=== PATIENT | male | born 1970 | race African-American/Black ===

== ENCOUNTER 2018-04-01 14:41 | Emergency (ER) | payer MEDICAID ==
[~2018-04-01] VITALS: Ht 172.7 cm; Wt 70.0 kg
[~2018-04-01 14:41] MED LIST: [UNRECOGNIZED DRUG - REMARK]
[2018-04-01 16:16] VITALS: BP 108/68
== END 2018-04-01 18:00 | disposition left against medical advice (07) ==
LOC: ER 16:34
DX: R41.82 Altered mental status, unspecified (principal); Z53.21 Procedure and treatment not carried out due to patient leaving prior to being seen by health care provider

== ENCOUNTER 2018-06-29 00:59 | Emergency (ER) | payer MEDICAID ==
[~2018-06-29] VITALS: Ht 172.7 cm; Wt 73.0 kg
[2018-06-29 01:19] VITALS: BP 134/84
== END 2018-06-29 04:15 | disposition left against medical advice (07) ==
LOC: ER 00:59
DX: R41.82 Altered mental status, unspecified (principal); Z53.21 Procedure and treatment not carried out due to patient leaving prior to being seen by health care provider

== ENCOUNTER 2019-07-11 02:33 | Emergency (ER) | payer MEDICAID ==
[~2019-07-11] VITALS: Ht 170.2 cm; Wt 79.0 kg
[2019-07-11 02:44] VITALS: BP 137/83
== END 2019-07-11 04:54 | disposition left against medical advice (07) ==
LOC: ER 02:33
DX: Z53.21 Procedure and treatment not carried out due to patient leaving prior to being seen by health care provider (principal); Z98.890 Other specified postprocedural states

== ENCOUNTER 2019-07-14 18:18 | Emergency (ER) | payer MEDICAID ==
[~2019-07-14] VITALS: Ht 160 cm; Wt 79.0 kg
[2019-07-14 18:44] VITALS: BP 138/84
== END 2019-07-15 01:34 | disposition left against medical advice (07) ==
LOC: ER 18:18
DX: Z53.21 Procedure and treatment not carried out due to patient leaving prior to being seen by health care provider (principal)

== ENCOUNTER 2019-08-17 23:25 | Emergency (ER) | payer MEDICAID ==
[~2019-08-17] VITALS: Ht 167.6 cm; Wt 75.0 kg
[2019-08-18] MEDS ORDERED: IBUPROFEN 600MG TABLET PO ONE (03:00)
[2019-08-18 03:16] VITALS: BP 140/82
== END 2019-08-18 04:23 | disposition home or self-care (01) ==
LOC: ER 23:25
DX: M79.671 Pain in right foot (principal); M79.672 Pain in left foot; Z98.890 Other specified postprocedural states
CPT/HCPCS: 99282

== ENCOUNTER 2019-08-25 03:06 | Emergency (ER) | payer MEDICAID ==
[~2019-08-25] VITALS: Ht 175.3 cm; Wt 82.0 kg
[2019-08-25] MEDS ORDERED: MAGNESIUM/ALUMINUM HYDROXIDE/SIMETHICONE 30ML UDC PO ONE (06:30)
[2019-08-25] MEDS ORDERED: VISCOUS LIDOCAINE 2% 15 ML UDC PO ONE (06:30)
[2019-08-25 07:18] LABS: BASOPHILS % 1.1 % (0.0-2.0); EOSINOPHILS % 1.9 % (0.0-5.0); HEMATOCRIT. 42.4 % (42.0-52.0); LYMPHOCYTES % 27.9 % (20.0-50.0); MEAN CORPUSCULAR HEMOGLOBIN 29.4 pg (28.0-32.0); MEAN CORPUSCULAR VOLUME 89.1 fL (80.0-94.0); MEAN PLATELET VOLUME 8.4 fl (7.4-10.4); MONOCYTES % 10.1 % (2.0-8.0); PLATELET 317 x1000/uL (130-400); RED BLOOD CELL COUNT 4.76 mill/uL (4.7-6.1); RED CELL DISTRIBUTION WIDTH 14.9 % (11.6-14.6)
[2019-08-25 07:27] LABS: CHLORIDE 105 mEq/L (98-107)
[2019-08-25 07:32] LABS: ETHANOL BLOOD < 10 mg/dL
[2019-08-25 08:51] LABS: *AMPHETAMINES SCREEN URINE PRESUMTIVE POSITIVE (NEGATIVE); *BARBITURATES SCREEN URINE NEGATIVE (NEGATIVE)
[2019-08-25 08:52] LABS: *BENZODIAZEPINES SCREEN URINE NEGATIVE (NEGATIVE); *COCAINE SCREEN URINE NEGATIVE (NEGATIVE); CANNABINOID URINE SCREEN NEGATIVE (NEGATIVE); METHADONE URINE SCREEN NEGATIVE (NEGATIVE); OPIATES URINE SCREEN NEGATIVE (NEGATIVE); PHENCYCLIDINE URINE SCREEN NEGATIVE (NEGATIVE)
[2019-08-25] MEDS ORDERED: ASPIRIN 325MG EC TABLET PO ONE (10:15)
[2019-08-25 11:34] VITALS: BP 141/86
== END 2019-08-25 12:27 | disposition left against medical advice (07) ==
LOC: ER 03:06 → CANBEDREQ 16:45
DX: I24.9 Acute ischemic heart disease, unspecified (principal); F15.10 Other stimulant abuse, uncomplicated; R42 Dizziness and giddiness; R10.9 Unspecified abdominal pain; R07.9 Chest pain, unspecified; F17.290 Nicotine dependence, other tobacco product, uncomplicated; Z98.890 Other specified postprocedural states
CPT/HCPCS: 36415; 71045; 80053; 80305; 80320; 83880; 84484; 85025; 93005; 99285; 99406; G0480

== ENCOUNTER 2019-08-30 03:39 | Emergency (ER) | payer MEDICAID ==
[~2019-08-30] VITALS: Ht 167.6 cm; Wt 72.0 kg
[2019-08-30 04:22] VITALS: BP 155/77
[2019-08-30] MEDS ORDERED: LEVETIRACETAM 500MG TABLET PO ONE (07:15)
[2019-08-30 09:40] LABS: BASOPHILS % 0.8 % (0.0-2.0); EOSINOPHILS % 1.3 % (0.0-5.0); HEMATOCRIT. 40.6 % (42.0-52.0); HEMOGLOBIN. 13.5 g/dL (14.0-18.0); LYMPHOCYTES % 24.7 % (20.0-50.0); MEAN CORPUSCULAR HEMOGLOBIN 29.6 pg (28.0-32.0); MEAN PLATELET VOLUME 8.2 fl (7.4-10.4); MONOCYTES % 13.8 % (2.0-8.0); NEUTROPHILS % 59.4 % (40.0-76.0); PLATELET 314 x1000/uL (130-400); RED BLOOD CELL COUNT 4.57 mill/uL (4.7-6.1)
[2019-08-30 09:46] LABS: CHLORIDE 107 mEq/L (98-107); PROTHROMBIN TIME 10.4 sec (9.6-11.0)
[2019-08-30 09:53] LABS: ETHANOL BLOOD < 10 mg/dL
== END 2019-08-30 11:46 | disposition home or self-care (01) ==
LOC: ER 03:39
DX: R51 Headache (principal); R42 Dizziness and giddiness; R47.81 Slurred speech; F15.10 Other stimulant abuse, uncomplicated; Z79.899 Other long term (current) drug therapy; Z98.890 Other specified postprocedural states
CPT/HCPCS: 36415; 80053; 80320; 85025; 99284; G0480

== ENCOUNTER 2019-09-13 01:33 | Emergency (ER) | payer MEDICAID ==
[~2019-09-13] VITALS: Ht 167.6 cm; Wt 65.4 kg
[2019-09-13 01:52] VITALS: BP 144/94
[2019-09-13] MEDS ORDERED: LEVETIRACETAM 500MG TABLET PO ONE (02:15)
[2019-09-13] MEDS ORDERED: ACETAMINOPHEN 500MG TABLET PO ONE (02:15)
[2019-09-13] MEDS ORDERED: ONDANSETRON 4MG ODT PO ONE (02:30)
== END 2019-09-13 02:44 | disposition home or self-care (01) ==
LOC: ER 01:33
DX: R51 Headache (principal); F15.10 Other stimulant abuse, uncomplicated; G40.909 Epilepsy, unspecified, not intractable, without status epilepticus; F10.10 Alcohol abuse, uncomplicated; Z91.19 Patient's noncompliance with other medical treatment and regimen; Z98.890 Other specified postprocedural states; Y90.9 Presence of alcohol in blood, level not specified
CPT/HCPCS: 99283; Q0162

== ENCOUNTER 2019-10-09 00:49 | Emergency (ER) | payer MEDICAID ==
[~2019-10-09] VITALS: Ht 175.3 cm; Wt 63.0 kg
[2019-10-09] MEDS ORDERED: ACETAMINOPHEN 500MG TABLET PO ONE (01:45)
[2019-10-09 02:02] VITALS: BP 133/83
== END 2019-10-09 02:03 | disposition home or self-care (01) ==
LOC: ER 00:49
DX: F19.10 Other psychoactive substance abuse, uncomplicated (principal); F10.10 Alcohol abuse, uncomplicated; Y90.0 Blood alcohol level of less than 20 mg/100 ml; F17.290 Nicotine dependence, other tobacco product, uncomplicated; F14.10 Cocaine abuse, uncomplicated; F15.10 Other stimulant abuse, uncomplicated
CPT/HCPCS: 93005; 99283

== ENCOUNTER 2019-12-05 16:56 | Inpatient (IN) | payer MEDICAID ==
[~2019-12-05] VITALS: Ht 160 cm; Wt 60.3 kg
[2019-12-05] MEDS ORDERED: SODIUM CHLORIDE 0.9% 1,000 ML IV ONE (17:21)
[2019-12-05 18:31] LABS: BASOPHILS % 0.7 % (0.0-2.0); EOSINOPHILS % 2.1 % (0.0-5.0); HEMATOCRIT. 41.7 % (42.0-52.0); HEMOGLOBIN. 14.2 g/dL (14.0-18.0); LYMPHOCYTES % 25.6 % (20.0-50.0); MEAN CORPUSCULAR HEMOGLOBIN 29.4 pg (28.0-32.0); MEAN CORPUSCULAR VOLUME 86.1 fL (80.0-94.0); MEAN PLATELET VOLUME 7.9 fl (7.4-10.4); MONOCYTES % 10.6 % (2.0-8.0); PLATELET 337 x1000/uL (130-400); RED BLOOD CELL COUNT 4.85 mill/uL (4.7-6.1)
[2019-12-05 18:35] LABS: CHLORIDE 105 mEq/L (98-107)
[2019-12-05 18:36] LABS: *AMPHETAMINES SCREEN URINE PRESUMTIVE POSITIVE (NEGATIVE); *BARBITURATES SCREEN URINE NEGATIVE (NEGATIVE); *BENZODIAZEPINES SCREEN URINE NEGATIVE (NEGATIVE); *COCAINE SCREEN URINE NEGATIVE (NEGATIVE); METHADONE URINE SCREEN NEGATIVE (NEGATIVE); OPIATES URINE SCREEN NEGATIVE (NEGATIVE)
[2019-12-05 18:37] LABS: CANNABINOID URINE SCREEN NEGATIVE (NEGATIVE); PHENCYCLIDINE URINE SCREEN NEGATIVE (NEGATIVE)
[2019-12-05 18:39] LABS: ETHANOL BLOOD 93 mg/dL
[2019-12-05] MEDS ORDERED: LORAZEPAM 2MG/ML CPJ IV ONE (19:15)
[2019-12-05] MEDS ORDERED: LORAZEPAM 2MG/ML CPJ IM ONE ×2 (20:45→22:30)
[2019-12-05] MEDS ORDERED: HALOPERIDOL LACTATE 5MG/ML VIAL IM ONE ×2 (21:15→21:18)
[2019-12-05] MEDS ORDERED: LORAZEPAM 2MG/ML CPJ ONE (22:25)
[2019-12-06] MEDS ORDERED: GUAIFENESIN 200MG/10ML SUGAR FREE UDC PO PRN (19:30)
[2019-12-06] MEDS ORDERED: NALOXONE HCL 0.4 MG/ML 1ML VIAL IV NR (19:30)
[2019-12-06] MEDS ORDERED: LORAZEPAM 2MG/ML CPJ IV PRN ×2 (19:30)
[2019-12-06] MEDS ORDERED: DOCUSATE SODIUM 100MG CAPSULE PO PRN (19:30)
[2019-12-06] MEDS ORDERED: POTASSIUM CHLORIDE 20MEQ TABLET SR PO NR (19:30)
[2019-12-06] MEDS ORDERED: IPRATROPIUM/ALBUTEROL 0.5-3(2.5)MG/3ML NEB HHN PRN (19:30)
[2019-12-06] MEDS ORDERED: ONDANSETRON HCL 4MG/2ML INJ IV PRN (19:30)
[2019-12-06] MEDS ORDERED: ACETAMINOPHEN 325MG TABLET PO PRN (19:30)
[2019-12-06] MEDS ORDERED: HYDROCODONE/ACETAMINOPHEN 5/325MG TABLET PO PRN (19:30)
[2019-12-06] MEDS ORDERED: CLONIDINE 0.1MG TABLET PO PRN (19:30)
[2019-12-06] MEDS: FOLIC ACID 1MG TABLET PO SCH (20:00)
[2019-12-06] MEDS: MULTIVITAMINS,THER W-MINERALS TABLET PO SCH (20:00)
[2019-12-06] MEDS: THIAMINE HCL 100MG TABLET PO SCH (20:00)
[2019-12-06 21:13] VITALS: BP 143/84
[2019-12-06 21:15] VITALS: BP 143/84
[2019-12-06] MEDS: CHLORDIAZEPOXIDE 25MG CAPSULE PO SCH (22:00)
[2019-12-06] MEDS: SODIUM CHLORIDE 0.9% 1,000 ML IV SCH (23:18)
[2019-12-07] VITALS (7 sets, daily range): BP systolic 118–143; BP diastolic 77–108
[2019-12-07] MEDS: CHLORDIAZEPOXIDE 25MG CAPSULE PO SCH ×2 (06:00→13:32)
[2019-12-07] MEDS: FOLIC ACID 1MG TABLET PO SCH (08:30)
[2019-12-07] MEDS: MULTIVITAMINS,THER W-MINERALS TABLET PO SCH (08:30)
[2019-12-07] MEDS: THIAMINE HCL 100MG TABLET PO SCH (08:30)
[2019-12-07 09:59] LABS: BASOPHILS % 0.4 % (0.0-2.0); EOSINOPHILS % 1.1 % (0.0-5.0); HEMATOCRIT. 41.5 % (42.0-52.0); HEMOGLOBIN. 14.2 g/dL (14.0-18.0); LYMPHOCYTES % 16.1 % (20.0-50.0); MEAN CORPUSCULAR HEMOGLOBIN 29.1 pg (28.0-32.0); MEAN CORPUSCULAR VOLUME 85.3 fL (80.0-94.0); MEAN PLATELET VOLUME 8.1 fl (7.4-10.4); MONOCYTES % 9.4 % (2.0-8.0); PLATELET 324 x1000/uL (130-400); RED BLOOD CELL COUNT 4.86 mill/uL (4.7-6.1); RED CELL DISTRIBUTION WIDTH 14.2 % (11.6-14.6)
[2019-12-07 10:02] LABS: CHLORIDE 105 mEq/L (98-107)
[2019-12-07] MEDS ORDERED: FOLI-43 PO (11:23)
[2019-12-07] MEDS ORDERED: L25 MT (11:23)
[2019-12-07] MEDS ORDERED: THIA100T72 PO (11:23)
[2019-12-07] MEDS: SODIUM CHLORIDE 0.9% 1,000 ML IV SCH (13:33)
[2019-12-07 14:15] LABS: FOLIC ACID (FOLATE) SERUM 18.9 ng/mL (>5.38)
== END 2019-12-07 19:10 | disposition home or self-care (01) | DRG 775 ==
LOC: ER 16:56 → MICUSO 12-06 15:57 → 5WST 12-06 21:56
PROVIDERS: ADMIT Internal Medicine; ATTEND Internal Medicine
DX: F10.129 Alcohol abuse with intoxication, unspecified (principal); G92 Toxic encephalopathy; E72.20 Disorder of urea cycle metabolism, unspecified; G93.89 Other specified disorders of brain; D72.810 Lymphocytopenia; D72.821 Monocytosis (symptomatic); E87.6 Hypokalemia; Z72.89 Other problems related to lifestyle; F15.129 Other stimulant abuse with intoxication, unspecified
CPT/HCPCS: 36415; 80048; 80053; 80305; 80320; 82140; 82607; 82746; 82962; 83735; 84100; 85025; 99285; J1630; J2060; J7030; G0480

== ENCOUNTER 2020-02-05 14:39 | Emergency (ER) | payer MEDICAID ==
[~2020-02-05] VITALS: Ht 167.6 cm; Wt 75.0 kg
[~2020-02-05 14:39] MED LIST changes: +FOLI-43 PO; +L25 MT; +THIA100T72 PO; -[UNRECOGNIZED DRUG - REMARK]
[2020-02-05 14:43] VITALS: BP 131/83
[2020-02-05] MEDS ORDERED: MAGNESIUM/ALUMINUM HYDROXIDE/SIMETHICONE 30ML UDC PO STA (15:13)
[2020-02-05] MEDS ORDERED: DICYCLOMINE 10 MG/5 ML ORAL SYR PO STA (15:13)
[2020-02-05] MEDS ORDERED: VISCOUS LIDOCAINE 2% 15 ML UDC PO STA (15:13)
[2020-02-05] MEDS ORDERED: ONDANSETRON 4MG ODT PO STA (15:13)
== END 2020-02-05 16:39 | disposition home or self-care (01) ==
LOC: ER 14:39
DX: R10.13 Epigastric pain (principal); F14.10 Cocaine abuse, uncomplicated; F15.10 Other stimulant abuse, uncomplicated; Z79.899 Other long term (current) drug therapy
CPT/HCPCS: 99284; Q0162

== ENCOUNTER 2020-03-18 23:46 | Emergency (ER) | payer MEDICAID ==
[~2020-03-18] VITALS: Ht 175.3 cm; Wt 75.0 kg
[2020-03-19] MEDS ORDERED: SODIUM CHLORIDE 0.9% 1,000 ML IV ONE (00:07)
[2020-03-19] MEDS ORDERED: ONDANSETRON HCL 4MG/2ML INJ IV STA (00:07)
[2020-03-19 00:31] LABS: BASOPHILS % 0.5 % (0.0-2.0); HEMATOCRIT. 37.4 % (42.0-52.0); HEMOGLOBIN. 12.7 g/dL (14.0-18.0); MEAN CORPUSCULAR HEMOGLOBIN 30.4 pg (28.0-32.0); MEAN CORPUSCULAR VOLUME 89.6 fL (80.0-94.0); MEAN PLATELET VOLUME 7.7 fl (7.4-10.4); MONOCYTES % 13.6 % (2.0-8.0); NEUTROPHILS % 48.9 % (40.0-76.0); PLATELET 255 x1000/uL (130-400); RED BLOOD CELL COUNT 4.17 mill/uL (4.7-6.1); RED CELL DISTRIBUTION WIDTH 13.6 % (11.6-14.6)
[2020-03-19 00:35] LABS: CHLORIDE 106 mEq/L (98-107)
[2020-03-19 00:42] LABS: ETHANOL BLOOD 169 mg/dL
[2020-03-19] MEDS ORDERED: POTASSIUM CHLORIDE 20MEQ TABLET SR PO NR (04:00)
[2020-03-19 06:25] VITALS: BP 115/78
== END 2020-03-19 06:45 | disposition home or self-care (01) ==
LOC: ER 23:46
DX: G93.40 Encephalopathy, unspecified (principal); F10.129 Alcohol abuse with intoxication, unspecified; Y90.6 Blood alcohol level of 120-199 mg/100 ml; T51.91XA Toxic effect of unspecified alcohol, accidental (unintentional), initial encounter; Y92.9 Unspecified place or not applicable
CPT/HCPCS: 36415; 80053; 80320; 85025; 93005; 99285; J7030; G0480

== ENCOUNTER 2020-07-05 03:48 | Emergency (ER) | payer MEDICAID ==
[~2020-07-05] VITALS: Ht 167.6 cm; Wt 69.0 kg
[2020-07-05 04:00] VITALS: BP 132/89
[2020-07-05] MEDS ORDERED: IBUPROFEN 600MG TABLET PO ONE (05:30)
== END 2020-07-05 05:53 | disposition home or self-care (01) ==
LOC: ER 03:48
DX: M54.5 Low back pain (principal); Z98.890 Other specified postprocedural states
CPT/HCPCS: 72100; 99283

== ENCOUNTER 2020-09-09 11:27 | Emergency (ER) | payer MEDICAID ==
[~2020-09-09] VITALS: Ht 170.2 cm; Wt 77.0 kg
[2020-09-09] MEDS ORDERED: FOLIC ACID 1 MG, THIAMINE HCL 100 MG, MVI, ADULT NO.1 10 ML in DEXTROSE 5% WATER 1,000 ML IV ONE (12:00)
[2020-09-09] MEDS ORDERED: SODIUM CHLORIDE 0.9% 1,000 ML IV ONE ×3 (12:00→18:00)
[2020-09-09 12:34] LABS: BASOPHILS % 0.7 % (0.0-2.0); EOSINOPHILS % 0.8 % (0.0-5.0); HEMATOCRIT. 38.9 % (42.0-52.0); HEMOGLOBIN. 12.8 g/dL (14.0-18.0); MEAN CORPUSCULAR HEMOGLOBIN 28.6 pg (28.0-32.0); MEAN PLATELET VOLUME 7.7 fl (7.4-10.4); MONOCYTES % 13.8 % (2.0-8.0); NEUTROPHILS % 53.7 % (40.0-76.0); PLATELET 253 x1000/uL (130-400); RED BLOOD CELL COUNT 4.47 mill/uL (4.7-6.1)
[2020-09-09 12:47] LABS: CHLORIDE 106 mEq/L (98-107)
[2020-09-09 12:49] LABS: CLARITY URINE CLEAR (CLEAR); COLOR URINE YELLOW (YELLOW); KETONES URINE NEGATIVE (NEGATIVE); LEUKOCYTE ESTERASE URINE NEGATIVE (NEGATIVE); NITRITE URINE NEGATIVE (NEGATIVE); OCCULT BLOOD URINE TRACE (NEGATIVE); PH URINE 6.5 (4.5-8.0); PROTEIN URINE TRACE (NEGATIVE); SPECIFIC GRAVITY URINE 1.014 (1.005-1.030)
[2020-09-09 12:58] LABS: ETHANOL BLOOD 69 mg/dL
[2020-09-09] MEDS ORDERED: MULTIVITAMINS,THER W-MINERALS TABLET PO SCH (13:00)
[2020-09-09] MEDS ORDERED: FOLIC ACID 1 MG, THIAMINE HCL 100 MG in DEXTROSE 5% WATER 1,000 ML IV ONE (13:00)
[2020-09-09 13:17] LABS: *AMPHETAMINES SCREEN URINE PRESUMTIVE POSITIVE (NEGATIVE); *BARBITURATES SCREEN URINE NEGATIVE (NEGATIVE); METHADONE URINE SCREEN NEGATIVE (NEGATIVE); OPIATES URINE SCREEN NEGATIVE (NEGATIVE); PHENCYCLIDINE URINE SCREEN NEGATIVE (NEGATIVE)
[2020-09-09 13:19] LABS: *BENZODIAZEPINES SCREEN URINE NEGATIVE (NEGATIVE); *COCAINE SCREEN URINE NEGATIVE (NEGATIVE)
[2020-09-09 13:29] LABS: CANNABINOID URINE SCREEN NEGATIVE (NEGATIVE)
[2020-09-09] MEDS ORDERED: POTASSIUM CHLORIDE 20MEQ TABLET SR PO ONE (14:15)
[2020-09-09] MEDS ORDERED: IBUP-2028 MT (23:25)
[2020-09-09] MEDS ORDERED: IBUPROFEN 600MG TABLET PO ONE (23:30)
[2020-09-10 04:27] VITALS: BP 159/89
== END 2020-09-10 05:16 | disposition home or self-care (01) ==
LOC: ER 11:27
DX: G92 Toxic encephalopathy (principal); F10.129 Alcohol abuse with intoxication, unspecified; Y90.3 Blood alcohol level of 60-79 mg/100 ml; F19.10 Other psychoactive substance abuse, uncomplicated; F15.129 Other stimulant abuse with intoxication, unspecified; E87.2 Acidosis; M54.9 Dorsalgia, unspecified; E87.6 Hypokalemia; F17.200 Nicotine dependence, unspecified, uncomplicated
CPT/HCPCS: 36415; 70450; 80053; 80305; 80307; 80320; 80329; 81003; 83605; 84484; 85025; 93005; 96361; 96365; 96366; 99285; J3411; J3490; J7030; J7070; Z7610; G0480

== ENCOUNTER 2021-08-11 04:05 | Emergency (ER) | payer MEDICAID ==
[~2021-08-11] VITALS: Ht 167.6 cm; Wt 75.0 kg
[~2021-08-11 04:05] MED LIST changes: +IBUP-2028 MT
[2021-08-11] MEDS ORDERED: IBUPROFEN 600MG TABLET PO STA (05:25)
[2021-08-11 06:05] LABS: HEMOGLOBIN. 12.9 g/dL (14.0-18.0); MEAN CORPUSCULAR HEMOGLOBIN 29.5 pg (28.0-32.0); MEAN CORPUSCULAR VOLUME 86.7 fL (80.0-94.0); MEAN PLATELET VOLUME 7.6 fl (7.4-10.4); PLATELET 299 x1000/uL (130-400); RED BLOOD CELL COUNT 4.38 mill/uL (4.7-6.1); RED CELL DISTRIBUTION WIDTH 13.4 % (11.6-14.6)
[2021-08-11 06:13] LABS: CHLORIDE 107 mEq/L (98-107)
[2021-08-11 06:17] LABS: ETHANOL BLOOD < 10 mg/dL
[2021-08-11 06:24] VITALS: BP 128/84
[2021-08-11 06:48] LABS: PLATELET ESTIMATE NORMAL
[2021-08-11 06:50] LABS: CLARITY URINE CLEAR (CLEAR); COLOR URINE YELLOW (YELLOW); KETONES URINE NEGATIVE (NEGATIVE); LEUKOCYTE ESTERASE URINE NEGATIVE (NEGATIVE); NITRITE URINE NEGATIVE (NEGATIVE); OCCULT BLOOD URINE NEGATIVE (NEGATIVE); PROTEIN URINE NEGATIVE (NEGATIVE); SPECIFIC GRAVITY URINE 1.024 (1.005-1.030)
[2021-08-11] MEDS ORDERED: IBUP-2029 MT (07:12)
[2021-08-11 07:17] LABS: *AMPHETAMINES SCREEN URINE PRESUMTIVE POSITIVE (NEGATIVE); *BARBITURATES SCREEN URINE NEGATIVE (NEGATIVE); *BENZODIAZEPINES SCREEN URINE NEGATIVE (NEGATIVE); *COCAINE SCREEN URINE NEGATIVE (NEGATIVE)
[2021-08-11 07:18] LABS: CANNABINOID URINE SCREEN PRESUMTIVE POSITIVE (NEGATIVE); METHADONE URINE SCREEN NEGATIVE (NEGATIVE); OPIATES URINE SCREEN NEGATIVE (NEGATIVE); PHENCYCLIDINE URINE SCREEN NEGATIVE (NEGATIVE)
== END 2021-08-11 07:19 | disposition home or self-care (01) ==
LOC: ER 04:05
DX: M54.50 Low back pain, unspecified (principal); T43.621A Poisoning by amphetamines, accidental (unintentional), initial encounter; F17.200 Nicotine dependence, unspecified, uncomplicated; F14.10 Cocaine abuse, uncomplicated; Y92.9 Unspecified place or not applicable
CPT/HCPCS: 36415; 71045; 80053; 80305; 80320; 81003; 85025; 99284; G0480

== ENCOUNTER 2022-10-17 17:17 | Inpatient (IN) | payer MEDICAID, OTHER ==
[~2022-10-17] VITALS: Ht 167.6 cm; Wt 55.3 kg
[~2022-10-17 17:17] MED LIST changes: +IBUP-2029 MT
[2022-10-17] MEDS ORDERED: SODIUM CHLORIDE 0.9% 1,000 ML IV ONE (18:30)
[2022-10-17 21:04] LABS: BASOPHILS % 0.7 % (0.0-2.0); EOSINOPHILS % 6.6 % (0.0-5.0); HEMOGLOBIN. 11.4 g/dL (14.0-18.0); LYMPHOCYTES % 28.4 % (20.0-50.0); MEAN CORPUSCULAR HEMOGLOBIN 27.9 pg (28.0-32.0); MEAN CORPUSCULAR VOLUME 83.4 fL (80.0-94.0); MEAN PLATELET VOLUME 7.5 fl (7.4-10.4); MONOCYTES % 13.1 % (2.0-8.0); NEUTROPHILS % 51.2 % (40.0-76.0); PLATELET 433 x1000/uL (130-400); RED BLOOD CELL COUNT 4.07 mill/uL (4.7-6.1); RED CELL DISTRIBUTION WIDTH 13.5 % (11.6-14.6)
[2022-10-17 21:11] LABS: CHLORIDE 105 mEq/L (98-107)
[2022-10-17 21:16] LABS: ETHANOL BLOOD < 10 mg/dL
[2022-10-17] MEDS ORDERED: SODIUM CHLORIDE 0.9% 1000ML BAG (SEPSIS BOLUS) IV ONE (22:15)
[2022-10-17] MEDS ORDERED: AZITHROMYCIN 500MG/250ML 250 ML IV ONE (22:15)
[2022-10-17] MEDS ORDERED: CEFTRIAXONE 1GM PREMIX 50 ML IV ONE (22:15)
[2022-10-17] MEDS ORDERED: ASPIRIN 325MG EC TABLET PO ONE (22:15)
[2022-10-18] MEDS ORDERED: CEFTRIAXONE 1GM PREMIX 50 ML IV NR (00:45)
[2022-10-18] MEDS ORDERED: ASPIRIN 325MG EC TABLET PO NR (00:45)
[2022-10-18] MEDS ORDERED: AZITHROMYCIN 500MG/250ML 250 ML IV NR (00:45)
[2022-10-18 03:30] VITALS: BP 134/72
[2022-10-18] MEDS ORDERED: LORAZEPAM 1MG TABLET PO PRN (06:30)
[2022-10-18] MEDS ORDERED: [UNRECOGNIZED DRUG - REMARK] IV SCH ×5 (09:00)
[2022-10-18] MEDS: MULTIVITAMINS,THER W-MINERALS TABLET PO SCH (09:24)
[2022-10-18 10:45] LABS: BASOPHILS % 0.9 % (0.0-2.0); EOSINOPHILS % 4.8 % (0.0-5.0); HEMATOCRIT. 35.1 % (42.0-52.0); HEMOGLOBIN. 11.7 g/dL (14.0-18.0); LYMPHOCYTES % 27.1 % (20.0-50.0); MEAN CORPUSCULAR HEMOGLOBIN 27.7 pg (28.0-32.0); MEAN CORPUSCULAR VOLUME 83.3 fL (80.0-94.0); MONOCYTES % 13.6 % (2.0-8.0); NEUTROPHILS % 53.6 % (40.0-76.0); PLATELET 400 x1000/uL (130-400); RED BLOOD CELL COUNT 4.21 mill/uL (4.7-6.1); RED CELL DISTRIBUTION WIDTH 13.5 % (11.6-14.6)
[2022-10-18 11:49] LABS: CHLORIDE 107 mEq/L (98-107)
[2022-10-18 20:00] VITALS: BP 122/65
[2022-10-19] VITALS: BP 128/62
[2022-10-19 04:00] VITALS: BP 138/63
[2022-10-19] MEDS: MULTIVITAMINS,THER W-MINERALS TABLET PO SCH (08:20)
[2022-10-19] MEDS: LORAZEPAM 2MG/ML CPJ IV PRN (17:19)
[2022-10-19 20:00] VITALS: BP 139/85
[2022-10-20] VITALS: BP 155/89
[2022-10-20 04:00] VITALS: BP 144/86
[2022-10-20 08:00] VITALS: BP 132/81
[2022-10-20] MEDS: MULTIVITAMINS,THER W-MINERALS TABLET PO SCH (08:38)
[2022-10-20 12:00] VITALS: BP 118/80
[2022-10-20] MEDS: LORAZEPAM 2MG/ML CPJ IV PRN (14:17)
[2022-10-20 16:00] VITALS: BP 123/77
[2022-10-20 20:09] VITALS: BP 131/80
[2022-10-20] MEDS: RISPERIDONE 1MG TABLET PO SCH (21:27)
[2022-10-21] VITALS: BP 119/74
[2022-10-21 04:00] VITALS: BP 117/74
[2022-10-21 08:00] VITALS: BP 117/83
[2022-10-21] MEDS: RISPERIDONE 1MG TABLET PO SCH ×2 (09:11→21:16)
[2022-10-21] MEDS: MULTIVITAMINS,THER W-MINERALS TABLET PO SCH (09:11)
[2022-10-21 12:00] VITALS: BP 130/70
[2022-10-21 16:00] VITALS: BP 125/77
[2022-10-21] MEDS ORDERED: CEFTRIAXONE 1GM PREMIX 50 ML IV SCH (16:45)
[2022-10-21] MEDS ORDERED: VANCOMYCIN 1G PREMIX 200 ML IV SCH (16:45)
[2022-10-21] MEDS: ACETAMINOPHEN 325MG TABLET PO PRN (16:52)
[2022-10-21] MEDS ORDERED: VANCOMYCIN 1.25GM PMX (XELLIA) 250 ML IV NR (18:00)
[2022-10-21] MEDS ORDERED: CEFTRIAXONE 1,000 MG in DEXTROSE 5% WATER 50 ML IV SCH (18:00)
[2022-10-21 20:00] VITALS: BP 132/71
[2022-10-21 23:37] LABS: BASOPHILS % 0.4 % (0.0-2.0); EOSINOPHILS % 0.3 % (0.0-5.0); HEMATOCRIT. 41.3 % (42.0-52.0); HEMOGLOBIN. 13.5 g/dL (14.0-18.0); LYMPHOCYTES % 25.8 % (20.0-50.0); MEAN CORPUSCULAR HEMOGLOBIN 27.5 pg (28.0-32.0); MEAN CORPUSCULAR VOLUME 83.7 fL (80.0-94.0); MEAN PLATELET VOLUME 7.6 fl (7.4-10.4); MONOCYTES % 12.8 % (2.0-8.0); NEUTROPHILS % 60.7 % (40.0-76.0); PLATELET 367 x1000/uL (130-400); RED BLOOD CELL COUNT 4.93 mill/uL (4.7-6.1); RED CELL DISTRIBUTION WIDTH 13.4 % (11.6-14.6)
[2022-10-21 23:59] LABS: CHLORIDE 96 mEq/L (98-107)
[2022-10-22 00:19] VITALS: BP 143/70
[2022-10-22 04:00] VITALS: BP 124/65
[2022-10-22 04:21] LABS: CHLORIDE 98 mEq/L (98-107)
[2022-10-22] MEDS: ACETAMINOPHEN 325MG TABLET PO PRN ×3 (04:44→21:54)
[2022-10-22] MEDS: VANCOMYCIN 1G PREMIX 200 ML IV SCH ×2 (06:11→18:27)
[2022-10-22 08:00] VITALS: BP 111/82
[2022-10-22] MEDS: RISPERIDONE 1MG TABLET PO SCH ×2 (10:01→21:36)
[2022-10-22 12:00] VITALS: BP 124/83
[2022-10-22] MEDS: PIPERACILLIN/TAZOBACTAM 3.375 G in DEXTROSE 5% WATER 50 ML IV SCH ×2 (14:28→21:36)
[2022-10-22 15:32] VITALS: BP 114/61
[2022-10-22] MEDS ORDERED: VANCOMYCIN 1G PREMIX 200 ML IV SCH (16:45)
[2022-10-22 20:00] VITALS: BP 122/80
[2022-10-23] VITALS: BP 103/72
[2022-10-23 04:00] VITALS: BP 108/75
[2022-10-23] MEDS: VANCOMYCIN 1G PREMIX 200 ML IV SCH ×2 (05:24→17:30)
[2022-10-23] MEDS: PIPERACILLIN/TAZOBACTAM 3.375 G in DEXTROSE 5% WATER 50 ML IV SCH ×3 (05:25→21:12)
[2022-10-23 06:48] LABS: CHLORIDE 97 mEq/L (98-107)
[2022-10-23 06:53] LABS: BASOPHILS % 0.4 % (0.0-2.0); EOSINOPHILS % 0.2 % (0.0-5.0); HEMATOCRIT. 37.6 % (42.0-52.0); HEMOGLOBIN. 12.8 g/dL (14.0-18.0); LYMPHOCYTES % 15.9 % (20.0-50.0); MEAN CORPUSCULAR HEMOGLOBIN 28.1 pg (28.0-32.0); MEAN CORPUSCULAR VOLUME 82.5 fL (80.0-94.0); MONOCYTES % 7.5 % (2.0-8.0); PLATELET 375 x1000/uL (130-400); RED BLOOD CELL COUNT 4.57 mill/uL (4.7-6.1); RED CELL DISTRIBUTION WIDTH 13.5 % (11.6-14.6)
[2022-10-23 08:00] VITALS: BP 122/79
[2022-10-23] MEDS: RISPERIDONE 1MG TABLET PO SCH ×2 (08:54→21:11)
[2022-10-23] MEDS: LACTULOSE 20G/30ML UDC PO SCH ×3 (09:07→21:12)
[2022-10-23 09:11] LABS: *AMPHETAMINES SCREEN URINE NEGATIVE (NEGATIVE); *BARBITURATES SCREEN URINE NEGATIVE (NEGATIVE); *BENZODIAZEPINES SCREEN URINE NEGATIVE (NEGATIVE); *COCAINE SCREEN URINE NEGATIVE (NEGATIVE); CANNABINOID URINE SCREEN NEGATIVE (NEGATIVE); METHADONE URINE SCREEN NEGATIVE (NEGATIVE); OPIATES URINE SCREEN NEGATIVE (NEGATIVE); PHENCYCLIDINE URINE SCREEN NEGATIVE (NEGATIVE)
[2022-10-23 10:10] LABS: BG BASE EXCESS 0.5 mmol/L (-2.0-2.0); BG CARBOXYHEMOGLOBIN 0.6 % (0.5-1.5); BG DEOXYHEMOGLOBIN 11.6 % (0.0-5.0); BG METHEMOGLOBIN 0.3 % (0.0-1.5); BG OXYGEN SATURATION 88.3 % (92.0-98.5); BG OXYHEMOGLOBIN 87.5 % (94.0-97.0); BG PH 7.488 (7.350-7.450); BG PO2 53.5 mmHg (75.0-100.0); BG SAMPLE SITE RIGHT BRACHIAL; BG TOTAL HEMOGLOBIN 14.3 g/dL (12.0-18.0); BG VENT MODE ROOM AIR
[2022-10-23 12:00] VITALS: BP 107/61
[2022-10-23 16:00] VITALS: BP 100/59
[2022-10-23 20:00] VITALS: BP 109/74
[2022-10-23 21:34] LABS: CLARITY URINE CLEAR (CLEAR); COLOR URINE DARK YELLOW (YELLOW); KETONES URINE TRACE (NEGATIVE); LEUKOCYTE ESTERASE URINE NEGATIVE (NEGATIVE); NITRITE URINE NEGATIVE (NEGATIVE); OCCULT BLOOD URINE NEGATIVE (NEGATIVE); PH URINE 5.5 (4.5-8.0); PROTEIN URINE 2+ (NEGATIVE); SPECIFIC GRAVITY URINE 1.041 (1.005-1.030)
[2022-10-23 21:40] LABS: HEPATITIS B SURFACE ANTIGEN NEGATIVE
[2022-10-24] VITALS: BP 107/76
[2022-10-24 03:26] LABS: HEMATOCRIT. 37.2 % (42.0-52.0); HEMOGLOBIN. 12.5 g/dL (14.0-18.0); MEAN CORPUSCULAR HEMOGLOBIN 27.6 pg (28.0-32.0); MEAN CORPUSCULAR VOLUME 82.3 fL (80.0-94.0); MEAN PLATELET VOLUME 7.8 fl (7.4-10.4); PLATELET 377 x1000/uL (130-400); RED BLOOD CELL COUNT 4.52 mill/uL (4.7-6.1); RED CELL DISTRIBUTION WIDTH 13.6 % (11.6-14.6)
[2022-10-24 03:29] LABS: CHLORIDE 98 mEq/L (98-107)
[2022-10-24 04:00] VITALS: BP 106/71
[2022-10-24 04:18] LABS: PLATELET ESTIMATE NORMAL
[2022-10-24] MEDS: VANCOMYCIN 1G PREMIX 200 ML IV SCH ×2 (05:25→17:05)
[2022-10-24] MEDS: LACTULOSE 20G/30ML UDC PO SCH ×3 (05:29→20:53)
[2022-10-24] MEDS: PIPERACILLIN/TAZOBACTAM 3.375 G in DEXTROSE 5% WATER 50 ML IV SCH ×2 (05:29→14:26)
[2022-10-24] MEDS: ACETAMINOPHEN 325MG TABLET PO PRN (05:30)
[2022-10-24 08:00] VITALS: BP 120/77
[2022-10-24] MEDS: RISPERIDONE 1MG TABLET PO SCH ×2 (09:58→20:53)
[2022-10-24 12:00] VITALS: BP 126/76
[2022-10-24 16:00] VITALS: BP 119/83
[2022-10-24 20:00] VITALS: BP 109/77
[2022-10-25] VITALS: BP 112/68
[2022-10-25 04:00] VITALS: BP 110/67
[2022-10-25] MEDS: LACTULOSE 20G/30ML UDC PO SCH ×3 (06:00→21:46)
[2022-10-25 08:00] VITALS: BP 116/71
[2022-10-25] MEDS: RISPERIDONE 1MG TABLET PO SCH ×2 (09:00→21:46)
[2022-10-25 12:00] VITALS: BP 118/73
[2022-10-25 13:11] LABS: HIV 1 ABS Reactive (Non Reactive); HIV 2 ABS Non Reactive (Non Reactive); HIV SCREEN 4G Preliminary Reactive (Non Reactive); INTERPRETATION HIV-1 Positive (.)
[2022-10-25 16:00] VITALS: BP 120/66
[2022-10-25 20:00] VITALS: BP 131/61
[2022-10-26] VITALS: BP 146/72
[2022-10-26] MEDS: LACTULOSE 20G/30ML UDC PO SCH ×3 (06:28→21:01)
[2022-10-26 08:00] VITALS: BP 105/66
[2022-10-26 08:08] LABS: ANA IFA Positive (.)
[2022-10-26] MEDS: RISPERIDONE 1MG TABLET PO SCH ×2 (09:05→21:00)
[2022-10-26 12:00] VITALS: BP 110/54
[2022-10-26 16:00] VITALS: BP 103/67
[2022-10-26 20:00] VITALS: BP 115/74
[2022-10-27] VITALS: BP 126/71
[2022-10-27] MEDS: HALOPERIDOL LACTATE 5MG/ML VIAL IM PRN ×2 (01:13→21:41)
[2022-10-27 04:00] VITALS: BP 133/86
[2022-10-27] MEDS: LACTULOSE 20G/30ML UDC PO SCH ×3 (06:16→21:35)
[2022-10-27 08:00] VITALS: BP 109/72
[2022-10-27] MEDS: RISPERIDONE 1MG TABLET PO SCH ×2 (09:18→21:35)
[2022-10-27 12:00] VITALS: BP 109/72
[2022-10-27] MEDS ORDERED: BENZONATATE 100MG CAPSULE PO PRN (12:45)
[2022-10-27 13:06] LABS: % CD 3 POS. LYMPHOCYTES 76.2 % (57.5-86.2); % CD 4 POS. LYMPHOCYTES 24.9 % (30.8-58.5); % CD 8 POS. LYMPH 50.5 % (12.0-35.5); ABSOLUTE CD 3 686 /uL (622-2402); ABSOLUTE CD 4 HELPER 224 /uL (359-1519); ABSOLUTE CD 8 SUPPRESSOR 455 /uL (109-897); ABSOLUTE EOSINOPHILS 0.4 x10E3/uL (0.0-0.4); ABSOLUTE LYMPHOCYTES 0.9 x10E3/uL (0.7-3.1); ABSOLUTE MONOCYTES 0.5 x10E3/uL (0.1-0.9); ABSOLUTE NEUTROPHILS 2.7 x10E3/uL (1.4-7.0); BASOPHILS 0 % (Not Estab.); CD4/CD8 RATIO 0.49 (0.92-3.72); HEMATOCRIT 38.2 % (37.5-51.0); HEMOGLOBIN 12.8 g/dL (13.0-17.7); IMMATURE GRANULOCYTES 1 % (Not Estab.); LYMPHOCYTES 19 % (Not Estab.); MEAN CORPUSCULAR HEMOGLOBIN 27.2 pg (26.6-33.0); MEAN CORPUSCULAR HGB CONC. 33.5 g/dL (31.5-35.7); MEAN CORPUSCULAR VOLUME 81 fL (79-97); MONOCYTES 12 % (Not Estab.); NEUTROPHILS 60 % (Not Estab.); PLATELETS 418 x10E3/uL (150-450); RBC 4.71 x10E6/uL (4.14-5.80); RED CELL DISTRIBUTION WIDTH 12.5 % (11.6-15.4); WBC 4.6 x10E3/uL (3.4-10.8)
[2022-10-27 13:23] LABS: BG BASE EXCESS 0.4 mmol/L (-2.0-2.0); BG CARBOXYHEMOGLOBIN 0.7 % (0.5-1.5); BG DEOXYHEMOGLOBIN 7.9 % (0.0-5.0); BG OXYHEMOGLOBIN 91.4 % (94.0-97.0); BG PCO2 35.3 mmHg (35.0-45.0); BG PO2 64.6 mmHg (75.0-100.0); BG SAMPLE SITE RIGHT BRACHIAL; BG TOTAL HEMOGLOBIN 13.4 g/dL (12.0-18.0); BG VENT MODE ROOM AIR
[2022-10-27 16:00] VITALS: BP 129/77
[2022-10-27 20:00] VITALS: BP_SYST 111; BP_SYST 124; BP_DIAS 75; BP_DIAS 83
[2022-10-27] MEDS: GUAIFENESIN 600MG ER TABLET PO SCH (21:35)
[2022-10-28] VITALS: BP 105/69
[2022-10-28 04:00] VITALS: BP 135/78
[2022-10-28] MEDS: LACTULOSE 20G/30ML UDC PO SCH ×3 (06:14→21:06)
[2022-10-28 08:00] VITALS: BP 130/88
[2022-10-28] MEDS: GUAIFENESIN 600MG ER TABLET PO SCH ×2 (09:17→21:06)
[2022-10-28] MEDS: RISPERIDONE 1MG TABLET PO SCH ×2 (09:17→21:07)
[2022-10-28 12:00] VITALS: BP 118/81
[2022-10-28 16:00] VITALS: BP 118/70
[2022-10-28 20:00] VITALS: BP 114/80
[2022-10-29] VITALS (7 sets, daily range): BP systolic 113–132; BP diastolic 63–76
[2022-10-29] MEDS: LACTULOSE 20G/30ML UDC PO SCH ×3 (06:43→21:29)
[2022-10-29] MEDS: RISPERIDONE 1MG TABLET PO SCH ×2 (08:32→21:29)
[2022-10-29] MEDS: GUAIFENESIN 600MG ER TABLET PO SCH ×2 (08:32→21:29)
[2022-10-30] VITALS: BP 110/78
[2022-10-30 04:00] VITALS: BP 105/71
[2022-10-30] MEDS: LACTULOSE 20G/30ML UDC PO SCH ×3 (06:32→21:05)
[2022-10-30 07:59] VITALS: BP 110/76
[2022-10-30] MEDS: GUAIFENESIN 600MG ER TABLET PO SCH ×2 (10:18→21:05)
[2022-10-30] MEDS: RISPERIDONE 1MG TABLET PO SCH ×2 (10:18→21:05)
[2022-10-30 11:56] VITALS: BP 111/78
[2022-10-30 16:00] VITALS: BP 107/69
[2022-10-30 20:00] VITALS: BP 116/80
[2022-10-31] VITALS: BP 112/69
[2022-10-31 04:00] VITALS: BP 115/76
[2022-10-31 05:21] LABS: CHLORIDE 102 mEq/L (98-107)
[2022-10-31] MEDS: LACTULOSE 20G/30ML UDC PO SCH ×4 (05:34→21:10)
[2022-10-31 05:44] LABS: BASOPHILS % 0.5 % (0.0-2.0); EOSINOPHILS % 8.2 % (0.0-5.0); HEMATOCRIT. 36.9 % (42.0-52.0); HEMOGLOBIN. 12.7 g/dL (14.0-18.0); LYMPHOCYTES % 18.8 % (20.0-50.0); MEAN CORPUSCULAR HEMOGLOBIN 28.2 pg (28.0-32.0); MEAN CORPUSCULAR VOLUME 81.8 fL (80.0-94.0); MEAN PLATELET VOLUME 7.8 fl (7.4-10.4); MONOCYTES % 11.3 % (2.0-8.0); NEUTROPHILS % 61.2 % (40.0-76.0); PLATELET 515 x1000/uL (130-400); RED CELL DISTRIBUTION WIDTH 13.2 % (11.6-14.6)
[2022-10-31 08:00] VITALS: BP 101/59
[2022-10-31] MEDS: RISPERIDONE 1MG TABLET PO SCH ×2 (09:09→21:10)
[2022-10-31] MEDS: GUAIFENESIN 600MG ER TABLET PO SCH ×2 (09:09→21:10)
[2022-10-31 12:00] VITALS: BP 148/70
[2022-10-31 16:00] VITALS: BP 113/69
[2022-10-31 20:00] VITALS: BP 101/64
[2022-11-01] VITALS: BP 106/64
[2022-11-01 04:00] VITALS: BP 112/68
[2022-11-01] MEDS: LACTULOSE 20G/30ML UDC PO SCH (06:01)
[2022-11-01 08:00] VITALS: BP_SYST 110; BP_SYST 112; BP_DIAS 68
[2022-11-01] MEDS: GUAIFENESIN 600MG ER TABLET PO SCH ×2 (08:47→21:23)
[2022-11-01] MEDS: RISPERIDONE 1MG TABLET PO SCH ×2 (08:47→21:23)
[2022-11-01 20:00] VITALS: BP 100/64
[2022-11-01 21:15] LABS: HEMATOCRIT 36.6 % (42.0-52.0); HEMOGLOBIN 12.4 g/dL (14.0-18.0); MEAN CORPUSCULAR HEMOGLOBIN 27.8 pg (28.0-32.0); PLATELET 519 x1000/uL (130-400); RED BLOOD CELL COUNT 4.47 mill/uL (4.7-6.1); RED CELL DISTRIBUTION WIDTH 13.3 % (11.6-14.6)
[2022-11-01 21:24] LABS: CHLORIDE 102 mEq/L (98-107)
[2022-11-02] MEDS: HALOPERIDOL LACTATE 5MG/ML VIAL IM PRN (05:00)
[2022-11-02 08:00] VITALS: BP 116/68
[2022-11-02] MEDS: RISPERIDONE 1MG TABLET PO SCH ×2 (09:05→22:42)
[2022-11-02] MEDS: GUAIFENESIN 600MG ER TABLET PO SCH ×2 (09:05→22:42)
[2022-11-02 12:00] VITALS: BP 100/63
[2022-11-02 16:00] VITALS: BP 107/68
[2022-11-02] MEDS: LACTULOSE 20G/30ML UDC PO SCH ×2 (17:43→22:42)
[2022-11-02 20:00] VITALS: BP 104/63
[2022-11-03] VITALS: BP 117/71
[2022-11-03 04:00] VITALS: BP 112/70
[2022-11-03] MEDS: LACTULOSE 20G/30ML UDC PO SCH ×3 (06:00→22:00)
[2022-11-03 08:00] VITALS: BP 102/62
[2022-11-03] MEDS: GUAIFENESIN 600MG ER TABLET PO SCH ×2 (09:05→22:01)
[2022-11-03] MEDS: RISPERIDONE 1MG TABLET PO SCH ×2 (09:05→22:00)
[2022-11-03 12:00] VITALS: BP 110/66
[2022-11-03 16:00] VITALS: BP 108/66
[2022-11-04 04:00] VITALS: BP 108/65
[2022-11-04] MEDS: LACTULOSE 20G/30ML UDC PO SCH ×3 (05:03→22:04)
[2022-11-04 08:00] VITALS: BP 115/65
[2022-11-04] MEDS: RISPERIDONE 1MG TABLET PO SCH ×2 (08:35→20:43)
[2022-11-04] MEDS: GUAIFENESIN 600MG ER TABLET PO SCH ×2 (08:35→20:43)
[2022-11-04 11:53] VITALS: BP 113/65
[2022-11-04 16:00] VITALS: BP 124/84
[2022-11-04 20:00] VITALS: BP 103/69
[2022-11-05] VITALS: BP 110/69
[2022-11-05] MEDS: LACTULOSE 20G/30ML UDC PO SCH ×3 (05:54→21:00)
[2022-11-05 08:00] VITALS: BP 95/60
[2022-11-05] MEDS: GUAIFENESIN 600MG ER TABLET PO SCH ×2 (08:30→20:46)
[2022-11-05] MEDS: RISPERIDONE 1MG TABLET PO SCH ×2 (08:31→20:47)
[2022-11-05 12:00] VITALS: BP 112/63
[2022-11-05 15:51] VITALS: BP 102/59
[2022-11-05 20:00] VITALS: BP 103/61
[2022-11-06] VITALS: BP 110/64
[2022-11-06 04:00] VITALS: BP 118/68
[2022-11-06] MEDS: LACTULOSE 20G/30ML UDC PO SCH ×3 (06:14→22:00)
[2022-11-06 08:00] VITALS: BP 102/66
[2022-11-06] MEDS: RISPERIDONE 1MG TABLET PO SCH ×2 (08:37→22:24)
[2022-11-06] MEDS: GUAIFENESIN 600MG ER TABLET PO SCH ×2 (08:37→22:24)
[2022-11-06 12:00] VITALS: BP 109/73
[2022-11-06 16:00] VITALS: BP 106/67
[2022-11-06 20:00] VITALS: BP 102/65
[2022-11-07 04:00] VITALS: BP 131/85
[2022-11-07] MEDS: LACTULOSE 20G/30ML UDC PO SCH ×3 (06:00→21:47)
[2022-11-07 08:00] VITALS: BP 109/83
[2022-11-07] MEDS: GUAIFENESIN 600MG ER TABLET PO SCH ×2 (08:43→21:47)
[2022-11-07] MEDS: RISPERIDONE 1MG TABLET PO SCH ×2 (08:43→21:47)
[2022-11-07 12:00] VITALS: BP 109/68
[2022-11-07 16:00] VITALS: BP 105/68
[2022-11-07 20:00] VITALS: BP 93/61
[2022-11-08] VITALS: BP 110/74
[2022-11-08 04:00] VITALS: BP 105/65
[2022-11-08] MEDS: LACTULOSE 20G/30ML UDC PO SCH ×2 (06:00→14:09)
[2022-11-08 08:00] VITALS: BP 111/71
[2022-11-08] MEDS ORDERED: IPRATROPIUM/ALBUTEROL 0.5-3(2.5)MG/3ML NEB ONE (08:35)
[2022-11-08] MEDS: RISPERIDONE 1MG TABLET PO SCH (09:16)
[2022-11-08] MEDS: GUAIFENESIN 600MG ER TABLET PO SCH (09:17)
[2022-11-08] MEDS ORDERED: RISP1 PO (11:18)
[2022-11-08 12:00] VITALS: BP 98/62
[2022-11-08 13:37] VITALS: BP 98/62
[2022-11-08 13:46] VITALS: BP 98/62
== END 2022-11-08 15:55 | disposition home or self-care (01) | DRG 892 ==
LOC: ER 17:17 → MICUSO 23:16 → 7WST 10-18 02:52 → 7EST 10-24 00:38 → 6EST 10-29 17:30 → 7EST 10-29 18:47 → 6EST 11-01 15:05
PROVIDERS: ADMIT Internal Medicine; ATTEND Internal Medicine
DX: G92.8 Other toxic encephalopathy (principal); B20 Human immunodeficiency virus [HIV] disease; U07.1 COVID-19; F10.229 Alcohol dependence with intoxication, unspecified; E51.2 Wernicke's encephalopathy; D64.9 Anemia, unspecified; Z78.1 Physical restraint status; Z20.822 Contact with and (suspected) exposure to COVID-19; F15.90 Other stimulant use, unspecified, uncomplicated
CPT/HCPCS: 36415; 36600; 71045; 80048; 80053; 80202; 80305; 80320; 81003; 82140; 82375; 82805; 83605; 83880; 84145; 84484; 85025; 85027; 85651; 86160; 86256; 86359; 86360; 86592; 86701; 86702; 86705; 86709; 86803; 87340; 87389; 87426; 93005; 97112; 97116; 97162; 99285; A6261; J0456; J0696; J1630; J2060; J2543; J2997; J3370; J3411; J3490; J7030; J7060; J7070; G0480